=== PATIENT | male | born 1930 | race Caucasian/White ===

== ENCOUNTER 2016-08-04 07:01 | Outpatient (CLI) | payer MEDICARE, BC ==
[2016-08-04 07:56] LABS: ALT (SGPT) 12 U/L (0-55); AST (SGOT) 15 U/L (5-34); Albumin 3.8 g/dL (3.4-4.8); Alkaline Phosphatase 75 U/L (40-150); Anion Gap 15 mmol/L (10-20); BUN (Urea Nitrogen) 28 mg/dL (8.4-25.7); Bilirubin, Direct 0.3 mg/dL (0.1-0.3); Bilirubin, Total 0.7 mg/dL (0.2-1.2); Calc. Creatinine Clearance 0 mL/min (70-130); Carbon Dioxide 24 mmol/L (23-31); Cardiac Risk 2.3 (Less than 4.5); Chloride 108 mmol/L (98-107); Cholesterol 119 mg/dL (< 200 Desired); Estimated GFR-MDRD 35; Glucose 111 mg/dL (83-110); HDL Cholesterol 52 mg/dL (>60 Neg Risk); LDL Cholesterol, Calculated 49 mg/dL; Potassium 4.1 mmol/L (3.5-5.1); Protein, Total 6.2 g/dL (5.8-8.1); Sodium 143 mmol/L (136-145); Triglycerides 92 mg/dL (Less than 150)
== END 2016-08-04 07:02 ==
LOC: MADLABBHPM 07:01
PROVIDERS: ATTEND Internal Medicine Nephrology
DX: E78.5 Hyperlipidemia, unspecified (principal); I12.9 Hypertensive chronic kidney disease with stage 1 through stage 4 chronic kidney disease, or unspecified chronic kidney disease; N18.3 Chronic kidney disease, stage 3 (moderate)
CPT/HCPCS: 36415; 80048; 80061; 80076; 82306; 83970

== ENCOUNTER 2016-08-06 19:57 | Emergency (ER) | payer MEDICARE, BC ==
[2016-08-06 20:35] LABS: #Basophils 0.1 thou/uL (0.0-0.2); #Eosinphils 0.2 thou/uL (0.0-0.7); #Monocytes 0.7 thou/uL (0.11-0.59); #Neutrophils 5.2 thou/uL (1.40-6.50); %Eosinophils 3.2 % (0.0-10.0); %Monocytes 9.2 % (0.0-10.0); %Neutrophils 72.7 % (42.0-75.0); Hemoglobin 16.2 g/dL (14.0-18.0); Mean Corpuscular HGB CONC 34.4 g/dL (32.0-36.0); Mean Corpuscular Hemoglobin 31.7 pg (27.0-31.0); Mean Corpuscular Volume 92.2 fl (80.0-94.0); Mean Platelet Volume 6.4 fL (7.4-10.4); Platelet Count 220 thou/uL (130-400); RBC Distribution Width 11.1 % (11.5-14.5); Red Blood Cell (RBC) Count 5.09 mill/uL (4.70-6.10); White Blood Cell (WBC) Count 7.1 thou/uL (4.8-10.8)
[2016-08-06 20:36] LABS: INR-International Normal Ratio 1.1; PTT 34.5 SEC (22.9-36.1); Prothrombin Time 14.9 SEC (12.0-14.7)
[2016-08-06 20:48] LABS: ALT (SGPT) 15 U/L (0-55); AST (SGOT) 16 U/L (5-34); Albumin 4.1 g/dL (3.4-4.8); Alkaline Phosphatase 78 U/L (40-150); Anion Gap 14 mmol/L (10-20); BUN (Urea Nitrogen) 25 mg/dL (8.4-25.7); Bilirubin, Total 0.5 mg/dL (0.2-1.2); CK (CPK) 72 U/L (30-200); CKMB 1.7 ng/mL (0-6.6); Calc. Creatinine Clearance 0 mL/min (70-130); Calcium 10.1 mg/dL (7.8-10.44); Carbon Dioxide 26 mmol/L (23-31); Chloride 109 mmol/L (98-107); Estimated GFR-MDRD 29; Globulin 2.6 g/dL (2.4-3.5); Glucose 116 mg/dL (83-110); Magnesium 2.7 mg/dL (1.6-2.6); Potassium 4.3 mmol/L (3.5-5.1); Protein, Total 6.7 g/dL (5.8-8.1); Sodium 145 mmol/L (136-145); Troponin I Less than 0.010 ng/mL (< 0.028)
[2016-08-06] MEDS ORDERED: methylPREDNISolone Sod Succ/PF 125 MG/2 ML VIAL ONE (20:56)
[2016-08-06] MEDS ORDERED: Magnesium Sulfate 2 GM/NS 0.9% 50 ML BAG ONE (20:56)
[2016-08-06] MEDS ORDERED: Dexamethasone 10 MG/ML VIAL ONE (20:56)
[2016-08-06] MEDS ORDERED: AMOXicillin 250 MG CAP ONE (21:56)
[2016-08-06] MEDS ORDERED: Benzonatate 100 MG CAP ONE (21:56)
--- NOTE | 2016-08-06 22:07 | PICIS ---
[facility] EMERGENCY RECORD TRIAGE (WedAug 06, 2016 20:11 MHEB) PATIENT: NAME: Barrett Ugarte, AGE: 86, GENDER: male, : [id number], TIME OF GREET: WedAug 06, 2016 19:58, PREFERRED LANGUAGE: Faroese, ETHNICITY: Not or , FALL RISK: NO, ECODE BILLING MAP: [facility], SSN: [id number], Zip Code: [address], KG WEIGHT: 83.91, PHONE: , , , PERSON ID: [id number]. (WedAug 06, 2016 20:11 MHEB) COMPLAINT: HEART. (WedAug 06, 2016 20:11 MHEB) ADMISSION: URGENCY: 2 Emergent, ADMISSION SOURCE: Home, TRANSPORT: Walk-in, BED: TRIAGE. (WedAug 06, 2016 20:11 MHEB) ASSESSMENT: Assessment: SOB WITH ANY EXERTION. (20:14 MHEB) IMMUNIZATIONS: Flu vaccine up to date. (20:14 MHEB) SIRS SCORING: Heart Rate 55-109 (0), Temp range 96.8-101.1 (0), respiratory rate 12-24 (0), respiratory rate 35-49 (3), Mental Status altered: no (0). (20:14 MHEB) TRIAGE SCREENING: Patient denies suicidal ideation, Patient denies presence of domestic violence. (20:14 MHEB) PROVIDERS: TRIAGE NURSE: Maday Hunter RN. (WedAug 06, 2016 20:11 MHEB) VITAL SIGNS: BP 198/100, Pulse 86, Resp 21, Temp 97.8, (Tympanic), Pain 5, O2 Sat 94, on Room Air, Time 08/06/2016 20:09. (20:09 MHEB) PREVIOUS VISIT ALLERGIES: BLANKA INHIBITORS . (WedAug 06, 2016 20:11 MHEB) BLANKA INHIBITORS . (20:14 MHEB) KNOWN ALLERGIES BLANKA INHIBITORS & STATINS (Unconfirmed) atorvastatin atorvastatin calcium (Unconfirmed) iodine (Unconfirmed) lisinopril simvastatin Tuberculin PPD Maile Test CURRENT MEDICATIONS HYDRALAZINE: Patient Dose: 25MG 2 times a day. (20:19 MHEB) aspirin: TABLET : Strength - 81 mg : ORAL Patient Dose: once a day.TIW. (20:19 MHEB) Crestor: TABLET : Strength - 20 mg : ORAL Patient Dose: 10 mg Oral once a day (at bedtime). (20:19 MHEB) potassium chloride: TABLET, EXT RELEASE, PARTICLES/CRYSTALS : Strength - 20 mEq : ORAL Patient Dose: 595 mg Oral 3 times a day (after meals). (20:19 MHEB) &a-1R&a+25V*p+0X*m3549I*c202B*c15G*c2P*p-0X&a-25V&a+1R Name: Barrett Ugarte : 1930 M86 MedRec: [id number] AcctNum: [id number] Prepared: Caty Aug 06, 2016 23:55 by Interface Page 1 of 12 pMD [facility] EMERGENCY RECORD Uloric: TABLET : Strength - 40 mg : ORAL Patient Dose: once a day (in the morning). (20:19 MHEB) carvedilol: TABLET : Strength - 25 mg : ORAL Patient Dose: 2 times a day. (20:19 MHEB) furosemide: TABLET : Strength - 40 mg : ORAL Patient Dose: 40 mg once a day. (20:19 MHEB) red yeast rice: CAPSULE : Strength - 600 mg : ORAL Patient Dose: 2 times a day. (20:19 M[facility]B) VITAMIN D3: Patient Dose: 1000 units. (20:19 MHEB) FISH OIL: Patient Dose: 2 times a day. (20:20 MHEB) CO Q10: Patient Dose: once a day. (20:21 MHEB) VITAL SIGNS (20:09 MHEB) VITAL SIGNS: BP: 198/100, Pulse: 86, Resp: 21, Temp: 97.8 (Tympanic), Pain: 5, O2 sat: 94 on Room Air, Time: 08/06/2016 20:09. NURSING ASSESSMENT: RESPIRATORY /CHEST (20:12 MHEB) CONSTITUTIONAL: Patient arrives, via hospital wheelchair, Gait steady, History obtained from patient, Patient appears comfortable, Patient cooperative, Patient alert, Oriented to person, place and time, Skin warm, Skin dry, Skin normal in color, Mucous membranes pink, Mucous membranes moist, Patient is well-groomed, Patient complains of SOB, SOB WITH HX OF COPD, INCREASING SOB THROUGH OUT THE DAY. RESPIRATORY/CHEST: Lungs auscultated, Breath sounds with wheezing, diffusely, Notes: PT BECOMES VERY SOB WITH ANY EXERTION. NURSING PROCEDURE: ELECTROMEDICAL EQUIPMENT TECHNICIAN (20:14 [facility]) PATIENT IDENTIFIER: Patient actively involved in identification process, Patient's identity verified by patient stating name, Patient's identity verified by patient stating date. ELECTROMEDICAL EQUIPMENT TECHNICIAN: Cardiac monitoring indicated for complaint of chest pain, Patient placed on cardiac cath lab manager, Heart rate: 67, Patient placed on non-invasive blood pressure monitor, Patient placed on continuous pulse oximetry, Adult/pediatric oxisensor applied. FOLLOW-UP: After procedure, alarms set and on, After procedure, patient tolerating monitoring. NOTES: Patient tolerated procedure well. SAFETY: Side rails up, Cart/Stretcher in lowest position, Family at bedside, Call light within reach, Hospital ID band on. &a-1R&a+25V*p+0X*p4801P*c202B*c15G*c2P*p-0X&a-25V&a+1R Name: Barrett Ugarte : 1930 M86 MedRec: [id number] AcctNum: [id number] Prepared: Caty Aug 06, 2016 23:55 by Interface Page 2 of 12 D [facility] EMERGENCY RECORD NURSING PROCEDURE: DISCHARGE NOTE (22:10 [facility]) DISCHARGE: Patient discharged to home, in a wheelchair, family driving, accompanied by //partner, Summary of Care printed/ provided, Discharge instructions given to patient, Simple or moderate discharge teaching performed, Prescriptions given and instructions on side effects given, Above person(s) verbalized understanding of discharge instructions and follow-up care, Patient treated and evaluated by physician. BELONGINGS: Belongings and valuables with patient at time of discharge include:, Belongings remain with patient, Valuables remain with patient. NURSING PROCEDURE: EKG CHART (20:11 [facility]) PATIENT IDENTIFIER: Patient actively involved in identification process, Patient's identity verified by patient stating name, Patient's identity verified by patient stating date. EKG: EKG indicated for complaint of chest pain, 12 lead EKG performed on the left chest, first EKG, Notes: PERFORMED AT 2002. FOLLOW-UP: After procedure, EKG for interpretation given to Dr. DE LEON. NOTES: Patient tolerated procedure well. SAFETY: Side rails up, Cart/Stretcher in lowest position, Family at bedside, Call light within reach, Hospital ID band on. NURSING PROCEDURE: IV PATIENT IDENITIFIER: Patient actively involved in identification process, Patient's identity verified by patient stating name, Patient's identity verified by patient stating date. (20:15 [facility]) IV SITE 1: IV therapy indicated for hydration, IV therapy indicated for medication administration, IV established, to the left antecubital, using an 18 gauge catheter, in one attempt, IV site prepped with CHLORAPREP, Saline lock established, Flushed with normal saline (mls): 10, Labs drawn at time of placement, labeled in the presence of the patient and sent to lab. (20:15 [facility]) FOLLOW-UP SITE 1: After procedure, sterile transparent dressing applied. (20:15 [facility]) IV discontinued, due to patient being discharged, catheter intact. (22:08 MHEB) NOTES: Patient tolerated procedure well. (20:15 [facility]) SAFETY: Side rails up, Cart/Stretcher in lowest position, Family at bedside, Call light within reach, Hospital ID band on. (20:15 [facility]) NURSING PROCEDURE: NURSE NOTES (21:30 [facility]) NURSES NOTES: Notes: pt resp effort improved and pt states that he feels much better. ORDER DETAILS &a-1R&a+25V*p+0X*l1489X*c202B*c15G*c2P*p-0X&a-25V&a+1R Name: Barrett Ugarte : 1930 M86 MedRec: [id number] AcctNum: [id number] Prepared: WedAug 06, 2016 23:55 by Interface Page 3 of 12 D [facility] EMERGENCY RECORD Order Name: B type Natriuretic Peptide, Status: Active, Time: 20:20 08/06/2016, User: FARIBA, - Ordered for: MD De Leon Lloyd, - Entered by: MD De Leon Lloyd - [facility] Aug 06, 2016 20:20, - Quantity: 1, Order Name: ELECTROMEDICAL EQUIPMENT TECHNICIAN ED, Status: Done, Time: 20:21 08/06/2016, User: MAYELIN, - Ordered for: MD De Leon Lloyd, - Entered by: MD De Leon Lloyd [facility] Aug 06, 2016 20:20, - Quantity: 1, Order Name: Cardiac Profile w/CKMB & Troponin - I, Status: Active, Time: 20:20 08/06/2016, User: FARIBA, - Ordered for: MD De Leon Lloyd, - Entered by: MD De Leon Lloyd - [facility] Aug 06, 2016 20:20, - Quantity: 1, Order Name: CBC with Differential, Status: Active, Time: 20:20 08/06/2016, User: FARIBA, - Ordered for: MD De Leon Lloyd, - Entered by: MD De Leon Lloyd - [place] Aug 06, 2016 20:20, - Quantity: 1, Order Name: CK (CPK), Status: Active, Time: 20:20 08/06/2016, User: FARIBA, - Ordered for: MD De Leon Lloyd, - Entered by: MD De Leon Lloyd [facility] Aug 06, 2016 20:20, - Quantity: 1, Order Name: Comprehensive Metabolic Panel, Status: Active, Time: 20:20 08/06/2016, User: FARIBA, - Ordered for: MD De Leon Lloyd, - Entered by: MD De Leon Lloyd [facility] Aug 06, 2016 20:20, - Quantity: 1, Order Name: EKG 12 Lead in Emergency Room, Status: Active, Time: 20:20 08/06/2016, User: FARIBA, - Ordered for: MD De Leon Lloyd, - Entered by: MD De Leon Lloyd [facility] Aug 06, 2016 20:20, - Quantity: 1, Order Name: ERRT * Smal Vol Neb Initial Trmt, Status: Active, Time: 20:43 08/06/2016, User: FARIBA, - Ordered for: MD De Leon Lloyd, - Entered by: MD De Leon Lloyd [facility] Aug 06, 2016 20:43, - Quantity: 1, Order Name: ERRT Small Vol Neb Sub Trmt, Status: Active, Time: 20:43 08/06/2016, User: FARIBA, - Ordered for: MD De Leon Lloyd, - Entered by: MD De Leon Lloyd - [facility] Aug 06, 2016 20:43, - Quantity: 1, Order Name: ERRT Oxygen Usage ER, Status: Active, Time: 20:20 08/06/2016, User: FARIBA, - Ordered for: MD De Leon Lloyd, - Entered by: MD De Leon Lloyd - [facility] Aug 06, 2016 20:20, &a-1R&a+25V*p+0X*m6205E*c202B*c15G*c2P*p-0X&a-25V&a+1R Name: Barrett Ugarte : 1930 M86 MedRec: [id number] AcctNum: [id number] Prepared: WedAug 06, 2016 23:55 by Interface Page 4 of 12 D [facility] EMERGENCY RECORD - Quantity: 1, Order Name: ERRT Pulse Oximeter ER, Status: Active, Time: 20:20 08/06/2016, User: FARIBA, - Ordered for: MD De Loen Lloyd, - Entered by: MD De Leon Lloyd - [facility] Aug 06, 2016 20:20, - Quantity: 1, Order Name: Magnesium, Status: Active, Time: 20:20 08/06/2016, User: FARIBA, - Ordered for: MD De Leon Lloyd, - Entered by: MD De Leon Lloyd - [facility] Aug 06, 2016 20:20, - Quantity: 1, Order Name: Protime with INR, Status: Active, Time: 20:20 08/06/2016, User: FARIBA, - Ordered for: MD De Leon Lloyd, - Entered by: MD De Leon Lloyd - [facility] Aug 06, 2016 20:20, - Quantity: 1, Order Name: PTT, Status: Active, Time: 20:20 08/06/2016, User: FARIBA, - Ordered for: MD De Leon Lloyd, - Entered by: MD De Leon Lloyd - [facility] Aug 06, 2016 20:20, - Quantity: 1, Order Name: SALINE LOCK, Status: Done, Time: 20:21 08/06/2016, User: MHEB, - Ordered for: MD De Leon Lloyd, - Entered by: MD De Leon Lloyd - [facility] Aug 06, 2016 20:20, - Quantity: 1, Order Name: XR Chest Pa & Lat STANDARD, Status: Active, Time: 20:20 08/06/2016, User: LLDO, - Ordered for: MD De Leon Lloyd, - Entered by: MD De Leon Lloyd - [facility] Aug 06, 2016 20:20, - Quantity: 1. MEDICATION ADMINISTRATION SUMMARY Drug Name: Jamie Bardales, Dose Ordered: 200 mg, Route: Oral, Status: Given, Time: 22:09 08/06/2016, Drug Name: methylPREDNISolone acetate, Dose Ordered: 80 mg, Route: Intramuscular, Status: Given, Time: 22:09 08/06/2016, Drug Name: amoxicillin, Dose Ordered: 500 mg, Route: Oral, Status: Given, Time: 22:08 08/06/2016, Drug Name: Decadron injection, Dose Ordered: 10 mg, Route: IV Push, Status: Given, Time: 21:11 08/06/2016, Drug Name: Solu-MEDROL Mix-O-Vial, Dose Ordered: 125 mg, Route: IV Push, Status: Given, Time: 21:11 08/06/2016, Drug Name: magnesium sulfate in water, Dose Ordered: 2 g, Route: IV Piggy Back, Status: Given, Time: 21:10 08/06/2016, Drug Name: DuoNeb, Dose Ordered: 1 inhalation, Route: Nebulize, Status: Given, Time: 20:45 08/06/2016, Detailed record available in Medication Service section. MEDICATION SERVICE &a-1R&a+25V*p+0X*q4755G*c202B*c15G*c2P*p-0X&a-25V&a+1R Name: Barrett Ugarte : 1930 M86 MedRec: [id number] AcctNum: [id number] Prepared: WedAug 06, 2016 23:55 by Interface Page 5 of 12 pMD [facility] EMERGENCY RECORD amoxicillin: Order: amoxicillin (amoxicillin trihydrate) - Dose: 500 mg : Oral Schedule: Now Ordered by: Andrey De Leon MD Entered by: Andrey De Leon MD [facility] Aug 06, 2016 21:43 , Acknowledged by: Maday Hunter RN [facility] Aug 06, 2016 21:54 Documented as given by: Maday Hunter RN [facility] Aug 06, 2016 22:08 Patient, Medication, Dose, Route and Time verified prior to administration. Amount given: 500mg, Site: Medication administered P.O., Correct patient, time, route, dose and medication confirmed prior to administration, Patient advised of actions and side-effects prior to administration, Allergies confirmed and medications reviewed prior to administration, Patient in position of comfort, Side rails up, Cart in lowest position, Family at bedside. Decadron injection: Order: Decadron injection (dexamethasone sod phosphate) - Dose: 10 mg : IV Push Schedule: Now Ordered by: Andrey De Leon MD Entered by: Andrey De Leon MD [facility] Aug 06, 2016 20:44 , Acknowledged by: Maday Hunter RN [facility] Aug 06, 2016 21:09 Documented as given by: Maday Hunter RN [facility] Aug 06, 2016 21:11 Patient, Medication, Dose, Route and Time verified prior to administration. Amount given: 10MG, IV SITE #1 IVP, subsequent different medication, Slowly, Catheter placement confirmed via flush prior to administration, IV site without signs or symptoms of infiltration during medication administration, No swelling during administration, No drainage during administration, IV flushed after administration, Correct patient, time, route, dose and medication confirmed prior to administration, Patient advised of actions and side-effects prior to administration, Allergies confirmed and medications reviewed prior to administration, Patient in position of comfort, Side rails up, Cart in lowest position, Family at bedside. DuoNeb: Order: DuoNeb (ipratropium bromide/albuterol sulfate) - Dose: 1 inhalation : Nebulize Schedule: Every 5 minutes Repeat: 3 DOSES Ordered by: Andrey De Leon MD Entered by: Andrey De Leon MD [facility] Aug 06, 2016 20:44 , Acknowledged by: Maday Hunter RN [facility] Aug 06, 2016 21:09 Documented as given by: Maday Hunter RN [facility] Aug 06, 2016 20:45 Patient, Medication, Dose, Route and Time verified prior to administration. Amount given: 3 DOSES, Site: Medication administered via Hand-held nebulizer, With oxygen, Correct patient, time, route, dose and medication confirmed prior to administration, Patient advised of actions and side-effects prior to administration, Allergies confirmed and medications reviewed prior to administration, Patient in position of comfort, Side rails up, Cart in lowest position, Family at bedside. &a-1R&a+25V*p+0X*i1801V*c202B*c15G*c2P*p-0X&a-25V&a+1R Name: Barrett Ugarte : 1930 M86 MedRec: [id number] AcctNum: [id number] Prepared: WedAug 06, 2016 23:55 by Interface Page 6 of 12 pMD [facility] EMERGENCY RECORD : Follow Up : Response assessment performed, No signs or symptoms of allergic reaction noted, Decreased pain, Decreased symptoms, Decreased blood pressure, Decreased heart rate, Decreased respiratory rate. (22:00 [facility]) magnesium sulfate in water: Order: magnesium sulfate in water (magnesium sulfate/water for injection,sterile) - Dose: 2 g : IV Piggy Back Schedule: Now Ordered by: Andrey De Leon MD Entered by: Andrey De Leon MD [facility] Aug 06, 2016 20:45 , Acknowledged by: Maday Hunter RN [facility] Aug 06, 2016 21:09 Documented as given by: Maday Hunter RN [facility] Aug 06, 2016 21:10 Patient, Medication, Dose, Route and Time verified prior to administration. Amount given: 2GM, IV SITE #1 IVPB or drip, initial infusion, IVPB mixed in: 100ml, Fluid: 0.9NS, via primary tubing, Catheter placement confirmed via flush prior to administration, IV site without signs or symptoms of infiltration during medication administration, No swelling during administration, No drainage during administration, IV flushed after administration, Correct patient, time, route, dose and medication confirmed prior to administration, Patient advised of actions and side-effects prior to administration, Allergies confirmed and medications reviewed prior to administration, Patient in position of comfort, Side rails up, Cart in lowest position, Family at bedside. : Follow Up : Response assessment performed, No signs or symptoms of allergic reaction noted, _IV SITE #1:_, Medication infusion discontinued, on Caty Aug 06, 2016 21:40, 30 minutes, ., Advised not to ambulate without assistance, Patient in position of comfort, Side rails up, Cart in lowest position, Family at bedside. (21:40 [facility]) methylPREDNISolone acetate: Order: methylPREDNISolone acetate (methylprednisolone acetate) - Dose: 80 mg : Intramuscular Schedule: Now Ordered by: Andrey De Leon MD Entered by: Andrey De Leon MD [facility] Aug 06, 2016 21:43 , Acknowledged by: Maday Hunter RN [facility] Aug 06, 2016 21:54, Acknowledged by: Maday Hunter RN [facility] Aug 06, 2016 21:54 Documented as given by: Maday Hunter RN [facility] Aug 06, 2016 22:09 Patient, Medication, Dose, Route and Time verified prior to administration. IM medication, Amount given: 80mg, Medication administered to left buttock, Patient in position of comfort, Side rails up, Cart in lowest position, Family at bedside. Solu-MEDROL Mix-O-Vial: Order: Solu-MEDROL Mix-O-Vial (methylprednisolone sod succ) - Dose: 125 mg : IV Push Schedule: Now Ordered by: Andrey De Leon MD Entered by: Andrey De Leon MD [facility] Aug 06, 2016 20:44 , &a-1R&a+25V*p+0X*e2910A*c202B*c15G*c2P*p-0X&a-25V&a+1R Name: Barrett Ugarte : 1930 M86 MedRec: [id number] AcctNum: [id number] Prepared: WedAug 06, 2016 23:55 by Interface Page 7 of 12 pMD [facility] EMERGENCY RECORD Acknowledged by: Maday Hunter RN [facility] Aug 06, 2016 21:09 Documented as given by: Maday Hunter RN [facility] Aug 06, 2016 21:11 Patient, Medication, Dose, Route and Time verified prior to administration. Amount given: 125MG, IV SITE #1 IVP, initial medication, Slowly, Catheter placement confirmed via flush prior to administration, IV site without signs or symptoms of infiltration during medication administration, No swelling during administration, No drainage during administration, IV flushed after administration, Correct patient, time, route, dose and medication confirmed prior to administration, Patient advised of actions and side-effects prior to administration, Allergies confirmed and medications reviewed prior to administration, Patient in position of comfort, Side rails up, Cart in lowest position, Family at bedside. Tessalon Perles: Order: Tessalon Perles (benzonatate) - Dose: 200 mg : Oral Schedule: Now Ordered by: Andrey De Leon MD Entered by: Andrey De Leon MD [facility] Aug 06, 2016 21:43 , Acknowledged by: Maday Hunter RN [facility] Aug 06, 2016 21:54 Documented as given by: Maday Hunter RN [facility] Aug 06, 2016 22:09 Patient, Medication, Dose, Route and Time verified prior to administration. Amount given: 200mg, Site: Medication administered P.O., Correct patient, time, route, dose and medication confirmed prior to administration, Patient advised of actions and side-effects prior to administration, Allergies confirmed and medications reviewed prior to administration, Patient in position of comfort, Side rails up, Cart in lowest position, Family at bedside. HPI SHORTNESS OF BREATH (20:50 [facility]) CHIEF COMPLAINT: Patient presents for evaluation of shortness of breath, Denies chest pain, Patient presents for evaluation of pt presents with 4-5 days of progressive wheeze and worsening rocha. no chest pain, nausea,. HISTORIAN: History provided by patient, History provided by patient's spouse, pt has a long hx of asthmatic copd. now has increased cough. LOCATION: Symptoms are generalized, No radiation of pain. QUALITY: Symptoms described as tightness, Symptoms described as wheezing, Described as similar to previous episodes. SEVERITY: Maximum severity of symptoms moderate, Currently symptoms are moderate. TIME COURSE: Gradual onset of symptoms, Symptoms are worsening, are constant. ASSOCIATED WITH: Associated with cough, Associated with dyspnea on exertion, Associated with hyperventilation, Associated with upper respiratory infection, No associated vomiting, Associated with wheezing. EXACERBATED BY: Patient's condition exacerbated by deep breaths, &a-1R&a+25V*p+0X*y6519D*c202B*c15G*c2P*p-0X&a-25V&a+1R Name: Barrett Ugarte : 1930 M86 MedRec: [id number] AcctNum: [id number] Prepared: WedAug 06, 2016 23:55 by Interface Page 8 of 12 pMD [facility] EMERGENCY RECORD Patient's condition exacerbated by exercise. RELIEVED BY: Patient's condition relieved by nothing. RISK FACTORS: Coronary artery disease risk factors, include known coronary artery disease, include hypertension, Thoracic aortic dissection risk factors, include hypertension, Pulmonary embolism risk factors, not applicable to this patient. ROS CONSTITUTIONAL: Historian reports fatigue, reports malaise, reports weakness. (20:57 LLDO) EYES: Negative eye review of systems, Historian denies eye pain, denies eye redness, denies eye discharge. (21:01 LLDO) ENT: Negative ears, nose, throat review of systems, Historian denies otalgia, denies rhinorrhea, denies sinus pain, denies sore throat. (21:01 LLDO) CARDIOVASCULAR: Negative cardiovascular review of systems, Historian denies chest pain, no radiation, Historian denies diaphoresis, denies paroxysmal nocturnal dyspnea, denies syncope. (21:01 LLDO) RESPIRATORY: Historian reports cough, reports shortness of breath, reports sputum. described as thick, Historian denies stridor, reports wheezing. (20:57 LLDO) GI: Negative gastrointestinal review of systems, Historian denies abdominal pain, denies constipation, denies diarrhea, denies nausea, denies vomiting. (21:01 LLDO) MUSCULOSKELETAL: Negative musculoskeletal review of systems, Historian denies arthralgias, denies fall, denies injury, denies myalgias. (21:01 LLDO) NEUROLOGIC: Negative neurologic review of systems, Historian denies confusion, denies focal weakness, denies mental status changes, denies sensory changes. (21:01 LLDO) HEMO/LYMPHATIC: Normal hematologic/lymphatic system review, Historian denies abnormal blood clotting, denies gum bleeding, denies petechiae. (21:01 LLDO) ALLERGIC/IMMUNOLOGIC: Normal allergy/immunologic system review, Historian denies eczema, denies environmental allergies, denies food allergies. (21:01 LLDO) PSYCHIATRIC: Negative psychiatric review of systems, Historian denies alcohol abuse, denies anxiety, denies depression, denies drug abuse, denies hallucinations. (21:01 LLDO) NOTES: All systems reviewed, negative except as described above. (20:57 LLDO) PAST MEDICAL HISTORY MEDICAL HISTORY: Notes: asbestosis, BPH, Past medical history includes cardiac history, cardiomyopathy, congestive heart failure, Past medical history includes gastrointestinal disease, gastroesophageal reflux disease, Past medical history includes &a-1R&a+25V*p+0X*y0787C*c202B*c15G*c2P*p-0X&a-25V&a+1R Name: Barrett Ugarte : 1930 M86 MedRec: [id number] AcctNum: [id number] Prepared: Caty Aug 06, 2016 23:55 by Interface Page 9 of 12 pMD [facility] EMERGENCY RECORD history of hyperlipidemia, Past medical history includes history of hypertension, Past medical history includes neurological disease, CVA, Past medical history includes pulmonary disease, chronic obstructive pulmonary disease. VERIFIED 08/06/16. (20:14 [facility]) MALE SURGICAL HISTORY: HEMMORRHOID SURGERY, [id number], Surgical history of cholecystectomy, Date of surgery 1999. ICD CHANGED 2 WEEKS AGO. (20:14 MHEB) PSYCHIATRIC HISTORY: No previous psychiatric history. (20:14 MHEB) SOCIAL HISTORY: Patient denies alcohol use, Patient denies drug use, Patient is a former tobacco user, Lives at home, with family, Patient is a former tobacco user, smoked cigarettes, Patient denies alcohol use, Patient denies drug use,. (20:14 MHEB) FAMILY HISTORY: Family history is non-contributory to this case. (20:14 MHEB) NOTES: Nursing records reviewed, Agree with nursing records, Medication list reviewed. (21:01 LLDO) PHYSICAL EXAM CONSTITUTIONAL: Vital Signs Reviewed, Patient afebrile, Pulse normal, Blood pressure, BP IS ELEVATED, Respiratory rate normal, Normal pulse oximetry, Patient appears, uncomfortable, Patient appears pain free, Patient alert and oriented to person, place and time, Nursing notes reviewed. (20:59 LLDO) HEAD: Head exam normal, Head exam included findings of head atraumatic, normocephalic. (21:01 LLDO) EYES: Eye exam normal, Eye exam included findings of eyelids normal to inspection, Pupils equally round and reactive to light, Extraocular muscles intact. (21:01 LLDO) ENT: ENT exam normal, Ear exam normal, Nose exam normal. (21:01 LLDO) NECK: Neck exam normal, Neck exam included findings of normal range of motion, Trachea midline, no meningeal signs, no tenderness. (21:01 LLDO) RESPIRATORY CHEST: Respiratory exam included findings of, moderate respiratory distress, Breath sounds not clear, Wheezing present, Rales present, No rhonchi, Breath sounds not absent, Breath sounds not diminished, Chest exam included findings of chest movement symmetrical, Chest expansion equal, no tenderness, WHEEZES AND RALES MOD AND DIFFUSE. (20:59 LLDO) CARDIOVASCULAR: Cardiovascular assessment normal, Cardiovascular exam included findings of heart rate regular rate and rhythm, Heart sounds normal. (21:01 LLDO) ABDOMEN MALE: Abdominal exam normal, Abdominal exam included findings of abdomen nontender, Bowel sounds normal, no peritoneal signs. (21:01 LLDO) BACK: Back exam normal, Back exam included findings of normal &a-1R&a+25V*p+0X*z7828V*c202B*c15G*c2P*p-0X&a-25V&a+1R Name: Barrett Ugarte : 1930 M86 MedRec: [id number] AcctNum: [id number] Prepared: WedAug 06, 2016 23:55 by Interface Page 10 of 12 pMD [facility] EMERGENCY RECORD inspection, range of motion normal. (21:01 LLDO) UPPER EXTREMITY: Upper extremity exam normal, Upper extremity exam included findings of inspection normal, Range of motion normal. (21:01 LLDO) LOWER EXTREMITY: Lower extremity exam normal, Lower extremity exam included findings of inspection normal, Range of motion normal. (21:01 LLDO) NEURO: Neuro exam normal, Neuro exam findings include patient oriented to person, place and time, Speech normal, [place] coma scale 15. (21:01 LLDO) SKIN: Skin exam normal, Skin exam included findings of skin warm, dry, and normal in color, no rash. (21:01 LLDO) PSYCHIATRIC: Psychiatric exam normal, Psychiatric exam included findings of patient oriented to person place and time, Normal affect, Judgment normal. (21:01 LLDO) EVENTS TRANSFER: Triage to Emergency Triage. (WedAug 06, 2016 20:11 MHEB) Emergency Triage to Main ED -01. (20:12 MHEB) Removed from Emergency Main ED -01. (22:41 MHEB) DOCTOR NOTES (21:50 LLDO) RE-EVALUATION: Routine re-evaluation, after administration of antipyretics. TEXT: still some expiratory wheeze but generally less wheezing and much better air flow. PROBLEM LIST No recorded problems DIAGNOSIS (21:50 LLDO) FINAL: PRIMARY: Asthmatic bronchitis, ADDITIONAL: CHF, Hypertension, PRESENCE OF CARDIAC PACEMAKER, Renal insufficiency. DISPOSITION PATIENT: Disposition Type: Discharge, Disposition: *Discharge Home. (21:42 LLDO) Patient left the department. (22:41 MHEB) INSTRUCTION (22:17 LLDO) DISCHARGE: ASTHMATIC BRONCHITIS ADULT, CHF, GENERAL, HYPERTENSION, ESTABLISHED, OUT OF CONTROL. FOLLOWUP: MD Madhavi, Jose L, [facility], [address] [place] [address], , Follow up with Primary Care Physician as soon as possible. SPECIAL: Follow-up with your simulation educator, Dr. Argueta. PRESCRIPTION (22:09 LLDO) &a-1R&a+25V*p+0X*p7951P*c202B*c15G*c2P*p-0X&a-25V&a+1R Name: Barrett Ugarte : 1930 M86 MedRec: [id number] AcctNum: [id number] Prepared: [facility] Aug 06, 2016 23:55 by Interface Page 11 of 12 pMD [facility] EMERGENCY RECORD amoxicillin: CAPSULE (HARD, SOFT, ETC.) : 500 mg : ORAL : Quantity: 1 Unit: cap(s) Route: ORAL Schedule: 3 times a day Dispense: 30 May substitute. Refills: No Refills . NOTES: No Refills. Phenergan DM: SYRUP : : ORAL : Quantity: 1-2 Unit: teaspoon Route: ORAL Schedule: every 4 hours prn Dispense: 180 Unit: mL May substitute. Refills: No Refills . NOTES: ^s=No Refills No Refills. IMAGING MEDICATION LIST: Image captured from scanner. (20:43 MHEB) *EKG: Image captured from scanner. (20:48 [facility]) *SUPPLY CHARGE SHEET: Image captured from scanner. (22:36 MHEB) *DISCHARGE INSTRUCTIONS RECEIPT: Image captured from scanner. (22:36 MHEB) ADMIN DIGITAL SIGNATURE: MD De Leon Lloyd. (21:51 LLDO) MD De Leon Lloyd. (23:46 LLDO) Reddy: QUITA=CARMEN Wilson, Tigist LINK=MD De Leon Lloyd MHEB=CARMEN Hunter, Maday &a-1R&a+25V*p+0X*f9955R*c202B*c15G*c2P*p-0X&a-25V&a+1R Name: Barrett Ugarte : 1930 M86 MedRec: [id number] AcctNum: [id number] Prepared: WedAug 06, 2016 23:55 by Interface Page 12 of 12 pMD [facility] MEDICATION RECONCILIATION You were seen in the Emergency Department on: WedAug 06, 2016 KNOWN ALLERGIES BLANKA INHIBITORS & STATINS (Unconfirmed) atorvastatin atorvastatin calcium (Unconfirmed) iodine (Unconfirmed) lisinopril simvastatin Tuberculin PPD Maile Test MEDICATIONS GIVEN WHILE IN THE EMERGENCY DEPARTMENT DuoNeb (ipratropium bromide/albuterol sulfate) - Dose: 1 inhalation : Nebulize Solu-MEDROL Mix-O-Vial (methylprednisolone sod succ) - Dose: 125 milligram(s) : IV Push Decadron injection (dexamethasone sod phosphate) - Dose: 10 milligram(s) : IV Push magnesium sulfate in water (magnesium sulfate/water for injection,sterile) - Dose: 2 gram(s) : IV Piggy Back amoxicillin (amoxicillin trihydrate) - Dose: 500 milligram(s) : Oral Tessalon Perles (benzonatate) - Dose: 200 milligram(s) : Oral methylPREDNISolone acetate (methylprednisolone acetate) - Dose: 80 milligram(s) : Intramuscular HOME MEDICATIONS furosemide : TABLET : Strength - 40 mg : ORAL take twice a day Patient had been takin mg once a day. CONTINUE PRESCRIBED aspirin : TABLET : Strength - 81 mg : ORAL Continue as prescribed Patient had been taking: once a day. Comment: TIW. carvedilol : TABLET : Strength - 25 mg : ORAL Continue as prescribed Patient had been takin times a day. CO Q10 Continue as prescribed Patient had been taking: once a day. &a-1R&a+25V*p+0X*a6064M*c202B*c15G*c2P*p-0X&a-25V&a+1R Name: Barrett Ugarte : 1930 M86 MedRec: [id number] AcctNum: [id number] Prepared: WedAug 06, 2016 23:55 by Interface pMD [facility] MEDICATION RECONCILIATION Crestor : TABLET : Strength - 20 mg : ORAL Continue as prescribed Patient had been takin mg Oral once a day (at bedtime). FISH OIL Continue as prescribed Patient had been takin times a day. HYDRALAZINE Continue as prescribed Patient had been takinMG 2 times a day. potassium chloride : TABLET, EXT RELEASE, PARTICLES/CRYSTALS : Strength - 20 mEq : ORAL Continue as prescribed Patient had been takin mg Oral 3 times a day (after meals). red yeast rice : CAPSULE : Strength - 600 mg : ORAL Continue as prescribed Patient had been takin times a day. Uloric : TABLET : Strength - 40 mg : ORAL Continue as prescribed Patient had been taking: once a day (in the morning). VITAMIN D3 Continue as prescribed Patient had been takin units. Notes from the emergency department Reviewed with patient Reviewed with family Reviewed with patient PRESCRIPTIONS (2) Printed (2) amoxicillin : CAPSULE (HARD, SOFT, ETC.) : 500 mg : ORAL Quantity: 1, Unit: cap(s), Route: ORAL, Schedule: 3 times a day, Dispense: 30 &a-1R&a+25V*p+0X*i9098G*c202B*c15G*c2P*p-0X&a-25V&a+1R Name: Barrett Ugarte : 1930 M86 MedRec: [id number] AcctNum: [id number] Prepared: [facility] Aug 06, 2016 23:55 by Interface pMD MARVIN
--- NOTE | 2016-08-06 22:07 | RAD ---
TWO VIEWS OF THE CHEST 08/06/16 COMPARISON: 10/31/13 HISTORY: Dyspnea. FINDINGS: Two views of the chest show normal sized cardiomediastinal silhouette. The pacemaker has been exchan ged for a triple lead pacemaker with its leads in the right atrium, right ventricle and coronary sin us. Increased interstitial markings are present. There may be small bilateral pleural effusions. IMPRESSION: Small bilateral pleural effusions. POS: RAMEZ
== END 2016-08-06 22:10 | disposition home or self-care (01) ==
LOC: MADERS 19:57
DX: J45.909 Unspecified asthma, uncomplicated (principal); I11.0 Hypertensive heart disease with heart failure; I50.9 Heart failure, unspecified; N28.9 Disorder of kidney and ureter, unspecified; I42.9 Cardiomyopathy, unspecified; K21.9 Gastro-esophageal reflux disease without esophagitis; E78.5 Hyperlipidemia, unspecified; J44.9 Chronic obstructive pulmonary disease, unspecified; Z86.73 Personal history of transient ischemic attack (TIA), and cerebral infarction without residual deficits; Z87.891 Personal history of nicotine dependence; Z90.49 Acquired absence of other specified parts of digestive tract; Z95.0 Presence of cardiac pacemaker; Z79.82 Long term (current) use of aspirin; Z79.899 Other long term (current) drug therapy
CPT/HCPCS: 71020; 80053; 82550; 82553; 83735; 83880; 84484; 85025; 85610; 85730; 93005; 94640; 94760; 96365; 96372; 96375; J1040; J1100; J2930; J3475; J7620

== ENCOUNTER 2016-08-14 07:37 | Outpatient (CLI) | payer MEDICARE, BC ==
[2016-08-14 08:30] LABS: Anion Gap 14 mmol/L (10-20); BUN (Urea Nitrogen) 44 mg/dL (8.4-25.7); Calc. Creatinine Clearance 0 mL/min (70-130); Calcium 9.6 mg/dL (7.8-10.44); Carbon Dioxide 29 mmol/L (23-31); Chloride 105 mmol/L (98-107); Digoxin 0.35 ng/mL (0.8-2.0); Estimated GFR-MDRD 32; Glucose 123 mg/dL (83-110); Sodium 144 mmol/L (136-145)
== END 2016-08-14 07:38 | disposition home or self-care (01) ==
LOC: MADLAB 07:37
PROVIDERS: ATTEND Internal Medicine Cardiovascular Disease
DX: I48.0 Paroxysmal atrial fibrillation (principal)
CPT/HCPCS: 36415; 80048; 80162

== ENCOUNTER 2016-09-18 07:57 | Outpatient (CLI) | payer MEDICARE, BC ==
[2016-09-18 09:14] LABS: Anion Gap 13 mmol/L (10-20); BUN (Urea Nitrogen) 24 mg/dL (8.4-25.7); Calc. Creatinine Clearance 0 mL/min (70-130); Calcium 9.4 mg/dL (7.8-10.44); Carbon Dioxide 28 mmol/L (23-31); Chloride 106 mmol/L (98-107); Estimated GFR-MDRD 31; Glucose 122 mg/dL (83-110); Potassium 3.8 mmol/L (3.5-5.1); Sodium 143 mmol/L (136-145)
[2016-09-18 11:32] LABS: Digoxin 2.69 ng/mL (0.8-2.0)
== END 2016-09-18 07:58 ==
LOC: MADLAB 07:57
PROVIDERS: ATTEND Internal Medicine Cardiovascular Disease
DX: I42.9 Cardiomyopathy, unspecified (principal)
CPT/HCPCS: 36415; 80048; 80162

== ENCOUNTER 2016-10-28 10:05 | Outpatient (CLI) | payer MEDICARE, BC ==
[2016-10-28 10:38] LABS: Anion Gap 12 mmol/L (10-20); BUN (Urea Nitrogen) 23 mg/dL (8.4-25.7); Calc. Creatinine Clearance 0 mL/min (70-130); Calcium 9.7 mg/dL (7.8-10.44); Carbon Dioxide 28 mmol/L (23-31); Chloride 106 mmol/L (98-107); Estimated GFR-MDRD 30; Glucose 118 mg/dL (83-110); Potassium 4.2 mmol/L (3.5-5.1); Sodium 142 mmol/L (136-145)
[2016-10-28 10:40] LABS: Digoxin 1.49 ng/mL (0.8-2.0)
== END 2016-10-28 10:06 | disposition home or self-care (01) ==
LOC: MADLAB 10:05
PROVIDERS: ATTEND Internal Medicine Cardiovascular Disease
DX: I48.0 Paroxysmal atrial fibrillation (principal)
CPT/HCPCS: 36415; 80048; 80162

== ENCOUNTER 2016-11-16 07:28 | Outpatient (CLI) | payer MEDICARE, BC ==
[2016-11-16 10:17] LABS: #Basophils 0.1 thou/uL (0.0-0.2); #Eosinphils 0.3 thou/uL (0.0-0.7); #Monocytes 0.6 thou/uL (0.11-0.59); #Neutrophils 4.3 thou/uL (1.40-6.50); %Basophils 1.3 % (0.0-1.0); %Eosinophils 4.6 % (0.0-10.0); %Lymphocytes 16.1 % (21.0-51.0); %Monocytes 10.2 % (0.0-10.0); %Neutrophils 67.8 % (42.0-75.0); Hemoglobin 15.8 g/dL (14.0-18.0); Mean Corpuscular HGB CONC 33.7 g/dL (32.0-36.0); Mean Corpuscular Hemoglobin 32.2 pg (27.0-31.0); Mean Corpuscular Volume 95.7 fl (80.0-94.0); Mean Platelet Volume 6.5 fL (7.4-10.4); Platelet Count 193 thou/uL (130-400); RBC Distribution Width 11.4 % (11.5-14.5); White Blood Cell (WBC) Count 6.3 thou/uL (4.8-10.8)
[2016-11-16 10:19] LABS: ALT (SGPT) 12 U/L (0-55); AST (SGOT) 13 U/L (5-34); Albumin 3.8 g/dL (3.4-4.8); Alkaline Phosphatase 65 U/L (40-150); Anion Gap 14 mmol/L (10-20); BUN (Urea Nitrogen) 23 mg/dL (8.4-25.7); Bilirubin, Direct 0.3 mg/dL (0.1-0.3); Bilirubin, Total 0.6 mg/dL (0.2-1.2); Calc. Creatinine Clearance 0 mL/min (70-130); Calcium 9.6 mg/dL (7.8-10.44); Carbon Dioxide 28 mmol/L (23-31); Cardiac Risk 2.6 (Less than 4.5); Chloride 107 mmol/L (98-107); Cholesterol 111 mg/dL (< 200 Desired); Estimated GFR-MDRD 35; Glucose 125 mg/dL (83-110); HDL Cholesterol 42 mg/dL (>60 Neg Risk); LDL Cholesterol, Calculated 48 mg/dL; Potassium 4.3 mmol/L (3.5-5.1); Protein, Total 6.1 g/dL (5.8-8.1); Sodium 145 mmol/L (136-145); Triglycerides 104 mg/dL (Less than 150); Uric Acid 4.5 mg/dL (3.5-7.2)
[2016-11-16 13:42] LABS: Digoxin 2.48 ng/mL (0.8-2.0)
== END 2016-11-16 07:29 ==
LOC: MADLABBHPM 07:28
PROVIDERS: ATTEND Family Medicine
DX: E78.5 Hyperlipidemia, unspecified (principal); N18.3 Chronic kidney disease, stage 3 (moderate); I48.91 Unspecified atrial fibrillation; I42.8 Other cardiomyopathies; M10.40 Other secondary gout, unspecified site
CPT/HCPCS: 80048; 80061; 80076; 80162; 84550; 85025

== ENCOUNTER 2016-11-30 08:30 | Outpatient (CLI) | payer MEDICARE, BC ==
[2016-11-30 09:35] LABS: Dilantin Less than 1.8 ug/mL (10.0-20.0); Uric Acid 4.3 mg/dL (3.5-7.2)
== END 2016-11-30 08:31 | disposition home or self-care (01) ==
LOC: MADLABBHPM 08:30
PROVIDERS: ATTEND Family Medicine
DX: I48.91 Unspecified atrial fibrillation (principal)
CPT/HCPCS: 36415; 80185; 84550

== ENCOUNTER 2016-12-16 08:45 | Outpatient (CLI) | payer MEDICARE, BC ==
[2016-12-16 10:34] LABS: Anion Gap 11 mmol/L (10-20); BUN (Urea Nitrogen) 24 mg/dL (8.4-25.7); Calc. Creatinine Clearance 0 mL/min (70-130); Calcium 9.6 mg/dL (7.8-10.44); Carbon Dioxide 30 mmol/L (23-31); Chloride 106 mmol/L (98-107); Estimated GFR-MDRD 30; Glucose 119 mg/dL (83-110); Sodium 143 mmol/L (136-145)
== END 2016-12-16 08:46 ==
LOC: MADLAB 08:45
PROVIDERS: ATTEND Internal Medicine Cardiovascular Disease
DX: I42.9 Cardiomyopathy, unspecified (principal)
CPT/HCPCS: 36415; 80048

== ENCOUNTER 2017-02-02 08:42 | Outpatient (CLI) | payer MEDICARE, BC ==
[2017-02-02 08:58] LABS: #Basophils 0.1 thou/uL (0.0-0.2); #Eosinphils 0.4 thou/uL (0.0-0.7); #Lymphocytes 1.1 thou/uL (1.20-3.40); #Monocytes 0.7 thou/uL (0.11-0.59); #Neutrophils 4.7 thou/uL (1.40-6.50); %Basophils 1.2 % (0.0-1.0); %Eosinophils 5.3 % (0.0-10.0); %Lymphocytes 16.1 % (21.0-51.0); %Monocytes 9.6 % (0.0-10.0); %Neutrophils 67.8 % (42.0-75.0); Hemoglobin 15.6 g/dL (14.0-18.0); Mean Corpuscular HGB CONC 33.3 g/dL (32.0-36.0); Mean Corpuscular Hemoglobin 30.8 pg (27.0-31.0); Mean Corpuscular Volume 92.4 fl (80.0-94.0); Mean Platelet Volume 5.7 fL (7.4-10.4); Platelet Count 202 thou/uL (130-400); RBC Distribution Width 11.3 % (11.5-14.5); Red Blood Cell (RBC) Count 5.08 mill/uL (4.70-6.10); White Blood Cell (WBC) Count 6.9 thou/uL (4.8-10.8)
[2017-02-02 09:14] LABS: Anion Gap 19 mmol/L (10-20); BUN (Urea Nitrogen) 24 mg/dL (8.4-25.7); Calc. Creatinine Clearance 0 mL/min (70-130); Calcium 9.2 mg/dL (7.8-10.44); Carbon Dioxide 23 mmol/L (23-31); Chloride 106 mmol/L (98-107); Estimated GFR-MDRD 33; Glucose 130 mg/dL (83-110); Potassium 3.9 mmol/L (3.5-5.1); Sodium 144 mmol/L (136-145)
== END 2017-02-02 08:43 | disposition home or self-care (01) ==
LOC: MADLAB 08:42
PROVIDERS: ATTEND Family Medicine
DX: N18.3 Chronic kidney disease, stage 3 (moderate) (principal)
CPT/HCPCS: 36415; 80048; 83970; 84100; 85025

== ENCOUNTER 2017-02-11 16:58 | Emergency (ER) | payer MEDICARE, BC ==
[~2017-02-11 16:58] MED LIST: Sterile Water Irrigation 250 ML BOT ONE
[2017-02-11] MEDS ORDERED: Cephalexin 250 MG CAP ONE (17:17)
[2017-02-11] MEDS ORDERED: TETANUS AND DIPHTHERIA TOX/PF 0.5 ML DISP.SYRIN ONE (17:23)
== END 2017-02-11 17:56 | disposition home or self-care (01) ==
LOC: MADERS 16:58
DX: S51.012A Laceration without foreign body of left elbow, initial encounter (principal); S41.111A Laceration without foreign body of right upper arm, initial encounter; K21.9 Gastro-esophageal reflux disease without esophagitis; E78.5 Hyperlipidemia, unspecified; J44.9 Chronic obstructive pulmonary disease, unspecified; I11.0 Hypertensive heart disease with heart failure; I50.9 Heart failure, unspecified; I42.9 Cardiomyopathy, unspecified; I25.10 Atherosclerotic heart disease of native coronary artery without angina pectoris; Z87.891 Personal history of nicotine dependence; Z86.73 Personal history of transient ischemic attack (TIA), and cerebral infarction without residual deficits; W19.XXXA Unspecified fall, initial encounter
CPT/HCPCS: 90471

== ENCOUNTER 2017-02-15 07:47 | Outpatient (CLI) | payer MEDICARE, BC ==
[2017-02-15 09:14] LABS: ALT (SGPT) 13 U/L (8-55); AST (SGOT) 13 U/L (5-34); Albumin 3.8 g/dL (3.4-4.8); Alkaline Phosphatase 63 U/L (40-150); Anion Gap 12 mmol/L (10-20); BUN (Urea Nitrogen) 28 mg/dL (8.4-25.7); Bilirubin, Direct 0.2 mg/dL (0.1-0.3); Bilirubin, Total 0.5 mg/dL (0.2-1.2); Calc. Creatinine Clearance 0 mL/min (70-130); Calcium 9.4 mg/dL (7.8-10.44); Carbon Dioxide 29 mmol/L (23-31); Cardiac Risk 2.9 (Less than 4.5); Chloride 107 mmol/L (98-107); Cholesterol 110 mg/dl (< 200 Desired); Estimated GFR-MDRD 33; Glucose 137 mg/dL (83-110); HDL Cholesterol 38 mg/dL (>60 Neg Risk); LDL Cholesterol, Calculated 41 mg/dL; Potassium 4.1 mmol/L (3.5-5.1); Protein, Total 6.5 g/dL (5.8-8.1); Sodium 144 mmol/L (136-145); Triglycerides 155 mg/dL (Less than 150); Uric Acid 4.4 mg/dL (3.5-7.2)
[2017-02-15 09:23] LABS: #Basophils 0.1 thou/uL (0.0-0.2); #Eosinphils 0.3 thou/uL (0.0-0.7); #Lymphocytes 1.3 thou/uL (1.20-3.40); #Monocytes 0.7 thou/uL (0.11-0.59); #Neutrophils 4.6 thou/uL (1.40-6.50); %Basophils 1.1 % (0.0-1.0); %Eosinophils 3.9 % (0.0-10.0); %Lymphocytes 18.3 % (21.0-51.0); %Neutrophils 66.7 % (42.0-75.0); Hemoglobin 15.8 g/dL (14.0-18.0); Mean Corpuscular HGB CONC 33.9 g/dL (32.0-36.0); Mean Corpuscular Hemoglobin 31.5 pg (27.0-31.0); Mean Corpuscular Volume 92.9 fl (80.0-94.0); Mean Platelet Volume 6.2 fL (7.4-10.4); Platelet Count 206 thou/uL (130-400); RBC Distribution Width 11.6 % (11.5-14.5); Red Blood Cell (RBC) Count 5.01 mill/uL (4.70-6.10); White Blood Cell (WBC) Count 6.9 thou/uL (4.8-10.8)
== END 2017-02-15 07:48 | disposition home or self-care (01) ==
LOC: MADLABBHPM 07:47
PROVIDERS: ATTEND Family Medicine
DX: E78.5 Hyperlipidemia, unspecified (principal); I48.91 Unspecified atrial fibrillation; N18.3 Chronic kidney disease, stage 3 (moderate); M10.40 Other secondary gout, unspecified site
CPT/HCPCS: 80048; 80061; 80076; 80185; 84550; 85025

== ENCOUNTER 2017-09-10 12:33 | Outpatient (CLI) | payer MEDICARE, BC ==
[2017-09-10 12:57] LABS: ALT (SGPT) 13 U/L (8-55); AST (SGOT) 13 U/L (5-34); Albumin 3.7 g/dL (3.4-4.8); Alkaline Phosphatase 56 U/L (40-150); Anion Gap 18 mmol/L (10-20); BUN (Urea Nitrogen) 27 mg/dL (8.4-25.7); Bilirubin, Direct 0.2 mg/dL (0.1-0.3); Bilirubin, Total 0.4 mg/dL (0.2-1.2); Calc. Creatinine Clearance 0 mL/min (70-130); Calcium 10.4 mg/dL (7.8-10.44); Carbon Dioxide 24 mmol/L (23-31); Chloride 108 mmol/L (98-107); Cholesterol 120 mg/dl (< 200 Desired); Digoxin 0.75 ng/mL (0.8-2.0); Estimated GFR-MDRD 31; Glucose 138 mg/dL (83-110); HDL Cholesterol 40 mg/dL (>60 Neg Risk); LDL Cholesterol, Calculated 44 mg/dL; Potassium 3.6 mmol/L (3.5-5.1); Protein, Total 6.4 g/dL (5.8-8.1); Sodium 146 mmol/L (136-145); Triglycerides 179 mg/dL (Less than 150); Uric Acid 3.8 mg/dL (3.5-7.2)
[2017-09-10 15:50] LABS: Hemoglobin A1c 6.2 % (4.0-6.0)
== END 2017-09-10 12:34 | disposition home or self-care (01) ==
LOC: MADLABBHPM 12:33
PROVIDERS: ATTEND Internal Medicine Cardiovascular Disease
DX: E11.9 Type 2 diabetes mellitus without complications (principal); E78.5 Hyperlipidemia, unspecified; I48.0 Paroxysmal atrial fibrillation; M10.40 Other secondary gout, unspecified site; I10 Essential (primary) hypertension
CPT/HCPCS: 36415; 80048; 80061; 80076; 80162; 83036; 84550; 85379

== ENCOUNTER 2017-12-31 07:35 | Outpatient (CLI) | payer MEDICARE, BC ==
[2017-12-31 09:38] LABS: ALT (SGPT) 13 U/L (8-55); AST (SGOT) 10 U/L (5-34); Albumin 3.8 g/dL (3.4-4.8); Alkaline Phosphatase 51 U/L (40-150); Anion Gap 15 mmol/L (10-20); BUN (Urea Nitrogen) 31 mg/dL (8.4-25.7); Bilirubin, Direct 0.2 mg/dL (0.1-0.3); Bilirubin, Total 0.7 mg/dL (0.2-1.2); Calc. Creatinine Clearance 0 mL/min (70-130); Calcium 10.1 mg/dL (7.8-10.44); Carbon Dioxide 28 mmol/L (23-31); Cardiac Risk 2.8 (Less than 4.5); Chloride 105 mmol/L (98-107); Cholesterol 111 mg/dl (< 200 Desired); Estimated GFR-MDRD 30; Glucose 147 mg/dL (83-110); HDL Cholesterol 40 mg/dL (>60 Neg Risk); LDL Cholesterol, Calculated 27 mg/dL; Potassium 3.9 mmol/L (3.5-5.1); Protein, Total 6.8 g/dL (5.8-8.1); Sodium 144 mmol/L (136-145); Triglycerides 220 mg/dL (Less than 150)
== END 2017-12-31 07:36 | disposition home or self-care (01) ==
LOC: MADLABBHPM 07:35
PROVIDERS: ATTEND Family Medicine
DX: E78.5 Hyperlipidemia, unspecified (principal); I10 Essential (primary) hypertension
CPT/HCPCS: 36415; 80048; 80061; 80076

== ENCOUNTER 2018-02-21 07:58 | Outpatient (CLI) | payer MEDICARE, BC ==
[2018-02-21 10:43] LABS: ALT (SGPT) 11 U/L (8-55); AST (SGOT) 10 U/L (5-34); Albumin 3.8 g/dL (3.4-4.8); Alkaline Phosphatase 49 U/L (40-150); Anion Gap 16 mmol/L (10-20); BUN (Urea Nitrogen) 31 mg/dL (8.4-25.7); Bilirubin, Total 0.6 mg/dL (0.2-1.2); Calc. Creatinine Clearance 0 mL/min (70-130); Calcium 9.8 mg/dL (7.8-10.44); Carbon Dioxide 23 mmol/L (23-31); Cardiac Risk 2.8 (Less than 4.5); Chloride 107 mmol/L (98-107); Cholesterol 105 mg/dl (< 200 Desired); Estimated GFR-MDRD 28; Globulin 2.6 g/dL (2.4-3.5); Glucose 143 mg/dL (83-110); HDL Cholesterol 37 mg/dL (>60 Neg Risk); LDL Cholesterol, Calculated 25 mg/dL; Potassium 3.5 mmol/L (3.5-5.1); Protein, Total 6.4 g/dL (5.8-8.1); Sodium 142 mmol/L (136-145); Triglycerides 213 mg/dL (Less than 150)
== END 2018-02-21 07:59 | disposition home or self-care (01) ==
LOC: MADLABBHPM 07:58
PROVIDERS: ATTEND Internal Medicine Cardiovascular Disease
DX: E78.00 Pure hypercholesterolemia, unspecified (principal)
CPT/HCPCS: 36415; 80053; 80061

== ENCOUNTER 2018-07-25 14:35 | Inpatient (IN) | payer MEDICARE, BC ==
[2018-07-25 16:41] VITALS: BMI 25.0
[2018-07-25] MEDS ORDERED: Acetaminophen 650 MG Suppository PR PRN (17:25)
[2018-07-25] MEDS ORDERED: Lorazepam 1 MG TAB SL PRN (17:33)
[2018-07-25] MEDS ORDERED: Morphine 10 MG/0.5 ML ORAL SYRINGE SL PRN (17:47)
[2018-07-25] MEDS ORDERED: Atropine Sulfate 1% Ophth Soln 5 ml Bottle PO PRN (17:48)
[2018-07-25] MEDS ORDERED: Scopolamine 1.5 mg/72 hour Patch TOP SCH (18:00)
[2018-07-25] MEDS: Morphine 10 MG/0.5 ML ORAL SYRINGE SL PRN (22:07)
[2018-07-26] MEDS: Morphine 10 MG/0.5 ML ORAL SYRINGE SL PRN ×2 (04:18→08:12)
[2018-07-26 07:46] VITALS: BP 156/75; TEMP 97
[2018-07-26] MEDS ORDERED: Scopolamine 1.5 mg/72 hour Patch TOP SCH (10:30)
--- NOTE | 2018-07-26 14:53 | HP ---
Barrett Ugarte admitted to [facility] on 07/25/2018. CHIEF COMPLAINT: Severe weakness following stroke. HISTORY OF PRESENT ILLNESS: Mr. Ugarte is an 88-year-old white male, who has a history of COPD, hypertension, nonischemic cardiomyopathy for which he has a pacemaker and defibrillator, and paroxysmal atrial fibrillation for which he has been on anticoagulant, Eliquis. The patient also has diabetes type 2 that has been well controlled and a history of gout and chronic kidney disease. He lives at home with his , who assists him with his ADLs. He is usually ambulatory and able to dress himself and is continent of urine and stools. He requires assistance with all his instrumental ADLs. The patient was admitted to [facility] in [facility] after emergent [facility] transfer on 07/16/2018. At home, he was sitting in his chair, and suddenly, he had slurred speech and was unable to move his left side. At [facility], he was evaluated and was found to have a hemorrhagic stroke. There was a 2.2 cm in diameter hematoma involving the right thalamus with a small amount of intraventricular hemorrhage seen on CT. There also were advanced involutional and chronic microvascular ischemic changes. Followup CT showed no change. This was managed conservatively with control of blood pressure. He had a very severe dysphagia and initially had a nasogastric feeding tube placed. His condition was one of no improvement. He was left with a severe dysphagia and severe left hemiplegia and gradually became noncommunicative. His family did not want the patient to have a PEG tube placed, and they said knowing Barrett that he would only want it at this point since he had not made any improvement, was not able to swallow, would not want aggressive care. His prognosis with his intracerebral hemorrhage was poor with a very poor chance of any significant functional improvement. The family opted not to have any feeding tube. They wanted the nasogastric tube removed and asked for palliative care only. They have asked that he be moved to [facility] to skilled care for palliative management. The patient is a DNR. PAST MEDICAL HISTORY: Hospitalized at [facility] from 07/16/2018 to 07/25/2018, for the right-sided intracerebral hemorrhage involving the thalamus measuring approximately 2.2 cm in diameter, complicated by severe dysphagia and decline in his mental status for which he opted palliative care only. The patient has hypertension, COPD, paroxysmal atrial fibrillation, nonischemic cardiomyopathy for which he has a pacemaker/ICD, hyperlipidemia, and diabetes type 2 that has been well controlled with last hemoglobin A1c of 6.2 on 07/04/2018, this has been diet managed. Chronic kidney disease. The patient has had a previous CVA in 1991, that left him with a very mild right-sided weakness. 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 Heart cath in 2009, showed ejection fraction of 15% to 20% with no significant coronary artery disease, had a dual-chamber ICD placed in 2009, later required placement of a pacemaker/defibrillator on July 24, 2016. The patient has had a cholecystectomy in 1999, later had obstructive jaundice from a stone formation, required removal of the stone endoscopically. PRESENT MEDICATIONS: Tylenol 650 mg per rectum every 4 hours as needed. HOME MEDICATIONS: Include: 1. Albuterol 0.083% by nebulizer twice a day and every 4 hours as needed. 2. Pulmicort 0.5 mg/2 mL, 2 mL b.i.d. by nebulizer. 3. Hydralazine 50 mg b.i.d. 4. Carvedilol 25 mg b.i.d. 5. Furosemide 40 mg half tablet 2 times a week. 6. Eliquis 2.5 mg twice a day. 7. KCl 99 mg daily. 8. Ecotrin 81 mg daily. 9. Uloric 40 mg daily. 10. Digoxin 0.125 mg daily. All these medicines have been stopped. ALLERGIES: LISINOPRIL CAUSES COUGH. LIPITOR CAUSES GYNECOMASTIA. REVIEW OF SYSTEMS: The patient is not able to answer review of systems. His says that the patient cannot talk. When he moves, he will groan. He cannot move his left side. Now, he has not been moving his right side in the last several days. He voids incontinently. He has been receiving feedings per NG tube, which they want removed. HABITS: Alcohol, none. Tobacco, the patient used to smoke, but stopped years ago. SOCIAL HISTORY: The patient is . Lives with his . CODE STATUS: DNR. PHYSICAL EXAMINATION: GENERAL: Shows an 88-year-old white male, who is lying in his bed with the head elevated. He has O2 on. Nasogastric feeding tube in place. He is unshaven. With movement, he will groan. He has very coarse rales that could be heard without a stethoscope. VITAL SIGNS: His vital signs show a temperature of 100.5, pulse 70, respirations 20, O2 saturation 93% on room air, blood pressure 165/74, and weight 179. HEENT: Head; normocephalic and atraumatic. Eyes; pupils are midposition and equal. Sclerae nonicteric. Ears; there is cerumen blocking and obscuring the view of the TMs. Nose, normal. Mouth and throat; the mucous membranes and mouth are dry. Tongue is dry. Carotids are equal and strong. Thyroid not enlarged. LUNGS: Have coarse rales heard throughout the chest. HEART: Regular rate. ABDOMEN: Soft, nontender. No organomegaly. EXTREMITIES: No edema. NEUROLOGIC: The patient groans with movement. He has no active movement. He has dense paralysis on the left side. With calling his name and movement, he does not open his eyes. SKIN: In good condition. There is no ulceration. IMPRESSION: 1. Intracerebral hemorrhagic stroke. a. Involving the right thalamus measuring approximately 2.2 cm, that occurred on 07/16/2018. b. Has left him with a dense left hemiparalysis with severe dysphagia and gradual decline in his mental status and alertness. c. Family has opted for palliative management. 2. Severe dysphagia. a. Secondary to recent hemorrhagic stroke. b. Family has opted to stop the nasogastric tube and not to have any type of feeding tube knowing that this would be the patient's request. 3. Hypertension. 4. Intermittent atrial fibrillation. 5. Nonischemic cardiomyopathy. a. Status post pacemaker/defibrillator on 07/24/2016. 6. Diabetes, type 2. a. Hemoglobin A1c was 6.2 on 07/04/2018, with diet control only. 7. Chronic kidney disease. 8. History of a previous cerebrovascular accident leaving him with a mild right-sided weakness in 1991. 9. Code status, DNR. PLAN: The patient has been admitted to [facility] for comfort measures. Family, that his , Aruna does not want a feeding tube nor does she want to continue the nasogastric feeding knowing that Barrett would not want this. We will order morphine and lorazepam to use if needed and will add atropine and scopolamine patch to try to help with the oral secretions, and we will position him for comfort. Job ID: [id number] MTDD
--- NOTE | 2018-07-27 10:32 | DIS ---
DATE OF ADMISSION: 07/25/2018 DATE OF DISCHARGE: 07/26/2018 SUMMARY: DATE OF : on 07/26/2018. FINAL DIAGNOSES: 1. Intracerebral hemorrhage involving the right thalamus. a. Occurred on 07/16/2018, it measured approximately 2.2 cm in diameter. b. Sudden onset of slurred speech and left hemiparalysis. c. Complicated by dense left hemiparalysis, severe dysphagia, and progressive decline. d. Has elected palliative care. 2. Severe dysphagia. a. Secondary to recent intracerebral hemorrhage that occurred on 07/16/2018. b. Nasogastric tube feeding has been stopped and the patient has refused placement of percutaneous endoscopic gastrostomy tube. 3. Chronic obstructive pulmonary disease. 4. Chronic atrial fibrillation. a. Had been on chronic anticoagulations prior to the hemorrhage. 5. Ischemic cardiomyopathy. a. Status post pacemaker/automatic implantable cardioverter-defibrillator placement in 2015. 6. Diabetes, type 2. a. Has been well controlled on diet alone. 7. Hypertension. 8. History of previous cerebrovascular accident that left him with mild right- sided weakness. 9. Chronic kidney disease. SUMMARY: The patient was an 88-year-old white male, who had a history of nonischemic cardiomyopathy with low ejection fraction that required an AICD and then upgraded in 2016 to a pacemaker AICD. He also had hypertension, chronic atrial fibrillation rate controlled and for which he had been on anticoagulation. He had COPD and diabetes type 2 that had been well controlled on diet alone with recent hemoglobin A1c of 6.4. He has had a previous CVA years ago that left him with a mild right-sided weakness. He lived at home with his and required some mild assistance with his ADLs and all his instrumental ADLs. The patient was helicopter transported emergently on 07/16/2018 to [facility] for sudden onset of slurred speech and left-sided weakness. He was found to have a right intracerebral hemorrhage measuring 2.2 cm. This remained stable. His anticoagulants were stopped. His condition did not improve. He had a severe dysphagia. Initially , his fluids and nutrition were supported with a nasogastric feeding. Blood pressure was managed and diabetes monitored. He was placed on DVT prophylaxis with sequential compression devices. His condition at [facility] was one of gradual decline. He remained with a very dense left hemiparalysis. He continued to have a very severe dysphagia, and he gradually became where he was noncommunicative and was responding merely to just painful stimuli. His did not want a PEG tube placed and did not want any enteral feedings. The knowing her and his wishes said that they just wanted palliative care and that he was a DNR. The patient elected to be transferred to [facility] on 07/25/2018. He arrived late that afternoon and there was initially seen by myself and nasogastric feeding tube was removed. The eyes were closed and would not open in response to verbal or tactile or painful stimuli. He could not move the left side. He would groan and moan with any movement. His lungs had diffuse coarse rales and rhonchi. The patient's nasogastric tube was stopped. He was placed on palliative care. He was position for comfort, the head of his bed was elevated. He was suctioned as necessary. He was placed on scopolamine patch as needed for the secretions and also was given morphine sublingual as needed and Ativan as needed. On the morning of 07/26/2018, he developed increasing upper airway secretions and coarse rales and vomited a small amount of yellowish phlegm and then respirations ceased and he . No resuscitative efforts were attempted per his DNR. The patient pronounced by the emergency room physician. Cause of was an intracerebral hemorrhage that occurred on 07/16/2018. Job ID: [id number] [facility]
== END 2018-07-26 12:29 | disposition expired | DRG 65 ==
LOC: MADMS 16:10
PROVIDERS: ADMIT Family Medicine; ATTEND Family Medicine
DX: I61.8 Other nontraumatic intracerebral hemorrhage (principal); G81.91 Hemiplegia, unspecified affecting right dominant side; R13.10 Dysphagia, unspecified; J44.9 Chronic obstructive pulmonary disease, unspecified; E11.22 Type 2 diabetes mellitus with diabetic chronic kidney disease; Z66 Do not resuscitate; M10.9 Gout, unspecified; I48.0 Paroxysmal atrial fibrillation; Z51.5 Encounter for palliative care; R47.81 Slurred speech; E78.5 Hyperlipidemia, unspecified; N18.9 Chronic kidney disease, unspecified; I25.5 Ischemic cardiomyopathy; I12.9 Hypertensive chronic kidney disease with stage 1 through stage 4 chronic kidney disease, or unspecified chronic kidney disease; Z79.899 Other long term (current) drug therapy; Z95.810 Presence of automatic (implantable) cardiac defibrillator; Z79.01 Long term (current) use of anticoagulants; Z98.890 Other specified postprocedural states; Z90.49 Acquired absence of other specified parts of digestive tract; Z88.8 Allergy status to other drugs, medicaments and biological substances; Z87.891 Personal history of nicotine dependence